=== PATIENT | female | born 1985 | race Hispanic/Latino ===

== ENCOUNTER 2025-08-24 11:13 | Emergency (ER) | payer BC, SELFPAY ==
[~2025-08-24 11:13] MED LIST: Iopamidol 300 61% 100 ML VIAL FS ONE
[2025-08-24 11:52] LABS: #Basophils Less than 0.03 10x3/uL (0.0-0.2); #Eosinophils 0.18 10x3/uL (0.0-0.5); #Monocytes 0.35 10x3/uL (0.0-1.1); #Neutrophils 3.99 10x3/uL (1.5-8.4); %Basophils 0.3 % (0.0-2.0); %Eosinophils 2.9 % (0.0-6.0); %Lymphocytes 27.5 % (18.0-47.0); %Monocytes 5.6 % (0.0-10.0); %Neutrophils 63.5 % (40.0-75.0); Hematocrit 40.5 % (34.9-44.5); Hemoglobin 13.4 g/dL (12.0-15.5); Mean Corpuscular Hemoglobin 26.3 pg (27.0-33.0); Mean Corpuscular Volume 79.4 fL (81.6-98.3); Platelet Count 279 10x3/uL (150-450); Red Blood Cell (RBC) Count 5.10 10x6/uL (3.90-5.03); White Blood Cell (WBC) Count 6.28 10x3/uL (3.5-10.5)
[2025-08-24 11:56] LABS: Glucose, Urine (Dipstick) Normal (Negative); Leukocyte Negative (Negative); Protein, Urine (Dipstick) 15 mg/dl (Neg-Trace); Specific Gravity, Urine 1.010 (1.005-1.030)
[2025-08-24 12:03] LABS: Pregnancy Test - Urine (BHCG) Negative (Negative); Pregu Control Background? CLEAR/WHITE (CLR/WHITE); Pregu Control Bar Appear? YES (CONTROL BAR)
[2025-08-24 12:09] LABS: Bacteria/HPF Rare-Few HPF (None Seen); CAUTI Indications for Culture Pelvic or flank pain; RBC/HPF Greater than 50 HPF (0-3); WBC/HPF None Seen HPF (0-3)
[2025-08-24 12:10] LABS: Urine Culture Reflex No No
[2025-08-24] MEDS ORDERED: Ketorolac Tromethamine 30 MG (1 mL) VIAL ONE (12:10)
[2025-08-24 12:27] LABS: ALT (SGPT) 22 U/L (Less than 34); AST (SGOT) 24 U/L (11-34); Albumin 3.9 g/dL (3.1-4.5); Alkaline Phosphatase 94 U/L (40-110); Anion Gap 11 mmol/L (10-20); BUN (Urea Nitrogen) 9 mg/dL (7.0-18.7); Bilirubin, Total 0.5 mg/dL (0.3-1.2); Calc. Creatinine Clearance 0 mL/min (70-130); Calcium 9.1 mg/dL (7.8-10.44); Carbon Dioxide 25 mmol/L (22-29); Chloride 105 mmol/L (98-107); Globulin 3.5 g/dL (2.4-3.5); Glucose 138 mg/dL (70-105); Potassium 3.8 mmol/L (3.5-5.1); Sodium 137 mmol/L (136-145)
== END 2025-08-24 13:36 | disposition home or self-care (01) ==
LOC: CSHERS 11:13
DX: N83.202 Unspecified ovarian cyst, left side (principal); R91.1 Solitary pulmonary nodule; E11.9 Type 2 diabetes mellitus without complications
CPT/HCPCS: 36415; 74177; 80053; 81001; 81025; 85025; 96374; J1885; Q0162